=== PATIENT | male | born 1950 | race Caucasian/White ===

== ENCOUNTER 2019-09-04 00:02 | Inpatient (IN) | payer MEDICAID, MEDICARE ==
[2019-09-04] MEDS ORDERED: HYDROmorphone 0.5 MG/0.5 ML Syringe IVPUSH ONE (00:41)
[2019-09-04] MEDS ORDERED: Sodium Chloride 0.9% 1,000 ML IV SCH ×2 (00:45→02:45)
--- NOTE | 2019-09-04 00:52 | EDM.PDOC ---
ED HPI GENERAL MEDICAL PROBLEM - General Chief Complaint: Abdominal Pain Stated Complaint: ABD PAIN Time Seen by Provider: 09/04/19 00:30 Source of Information: Reports: Patient History Limitations: Reports: No Limitations - History of Present Illness INITIAL COMMENTS - FREE TEXT/NARRATIVE: 68-year-old male with right lower abdominal pain for the past 5 hours. He had a similar pain 2 weeks ago but it resolved. Tonight after eating he noticed he was having increased pain and also noticed a significant swelling in his right groin. It is not improving, it is getting worse, so he came in to be seen. He has type 2 diabetes which is insulin-dependent but has never had an abdominal surgery and is generally healthy. Onset: Sudden (pain started rather suddenly tonight just after 7 PM) Location: Reports: Abdomen Associated Symptoms: Reports: No Other Symptoms RLQ Pain Score (Numeric/FACES): 8 - Related Data Allergies Allergy/AdvReac Type Severity Reaction Status Date / Time No Known Allergies Allergy Verified 09/04/19 02:00 Home Meds: Home Meds Aspirin [Halfprin] 81 mg PO DAILY 02/18/16 [History] Cholecalciferol (Vitamin D3) [Vitamin D3] 5,000 unit PO DAILY 02/18/16 [History] Insulin Detemir [Levemir] 30 unit SQ BEDTIME 02/18/16 [History] Lisinopril 10 mg PO DAILY 02/18/16 [History] Pravastatin [Pravachol] 40 mg PO DAILY 02/18/16 [History] metFORMIN [Glucophage] 500 mg PO BIDMEALS 02/18/16 [History] Past Medical History HEENT History: Reports: Impaired Vision Cardiovascular History: Reports: High Cholesterol, Hypertension Musculoskeletal History: Reports: Arthritis Endocrine/Metabolic History: Reports: Diabetes, Type II, IDDM - Infectious Disease History Infectious Disease History: Reports: Chicken Pox, Measles, Mumps - Past Surgical History HEENT Surgical History: Reports: Tonsillectomy Social & Family History - Tobacco Use Smoking Status *Q: Never Smoker - Caffeine Use Caffeine Use: Reports: Soda - Recreational Drug Use Recreational Drug Use: No ED ROS GENERAL - Review of Systems Review Of Systems: See Below Constitutional: Denies: Fever, Chills Respiratory: Denies: Shortness of Breath GI/Abdominal: Reports: Abdominal Pain. Denies: Nausea, Vomiting : Reports: Other (Right groin pain) Skin: Reports: No Symptoms ED EXAM, GI/ABD - Physical Exam Exam: See Below Exam Limited By: No Limitations General Appearance: Alert, No Apparent Distress (Looks uncomfortable but not distressed) Eyes: Bilateral: Normal Appearance Head: Atraumatic Respiratory/Chest: No Respiratory Distress, Lungs Clear Cardiovascular: Regular Rate, Rhythm GI/Abdominal Exam: Other (Patient has a firm, very tender femoral hernia which is nonreducible) Extremities: Normal Inspection Neurological: Alert, Oriented Psychiatric: Normal Affect, Normal Mood Course - Vital Signs Last Recorded V/S: Last Vital Signs Temp 98.4 F 09/04/19 01:36 Pulse 69 09/04/19 01:36 Resp 16 09/04/19 01:36 BP 147/53 H 09/04/19 01:36 Pulse Ox 98 09/04/19 01:36 - Orders/Labs/Meds Orders: Active Orders 24 hr Category Date Time Status Sodium Chloride 0.9% [Normal Saline] 1,000 ml Med 09/04/19 00:45 Active IV ASDIRECTED Medication Orders Diphenhydramine HCl (Benadryl) 25 - 50 mg IV Q4H PRN PRN Reason: Itching Diphenhydramine HCl (Benadryl) 25 - 50 mg PO Q4H PRN PRN Reason: Itching Fentanyl (Sublimaze) 10 - 30 mcg IV Q1H PRN PRN Reason: Pain Sodium Chloride (Normal Saline) 1,000 mls @ 500 mls/hr IV ASDIRECTED ELIER Last Admin: 09/04/19 00:50 Dose: 500 mls/hr Miscellaneous Information (Remove Patch) 1 ea TRDERM Q72H ELIER Miscellaneous Information (Remove Patch) 1 ea TRDERM Q24H ELIER Morphine Sulfate (Morphine) 1 - 3 mg IVPUSH Q1H PRN PRN Reason: Pain Nicotine (Habitrol) 14 mg TRDERM Q24H PRN PRN Reason: Other Ondansetron HCl (Zofran) 4 mg IVPUSH Q8H PRN PRN Reason: Nausea Promethazine HCl (Phenergan) 12.5 - 25 mg IV Q8H PRN PRN Reason: Nausea/Vomiting Scopolamine (Transderm-Scop) 1.5 mg TOP Q72H PRN PRN Reason: Nausea Meds: Medications Generic Name Dose Route Start Last Admin Trade Name Freq PRN Reason Stop Dose Admin Diphenhydramine HCl 25 - 50 mg 09/04/19 02:02 Benadryl IV Q4H PRN Itching Diphenhydramine HCl 25 - 50 mg 09/04/19 02:03 Benadryl PO Q4H PRN Itching Fentanyl 10 - 30 mcg 09/04/19 02:06 Sublimaze IV Q1H PRN Pain Sodium Chloride 1,000 mls @ 500 mls/hr 09/04/19 00:45 09/04/19 00:50 Normal Saline IV 500 mls/hr ASDIRECTED ELIER Administration Miscellaneous Information 1 ea 09/06/19 09:00 Remove Patch TRDERM Q72H ELIER Miscellaneous Information 1 ea 09/04/19 21:00 Remove Patch TRDERM Q24H ELIER Morphine Sulfate 1 - 3 mg 09/04/19 02:05 Morphine IVPUSH Q1H PRN Pain Nicotine 14 mg 09/04/19 02:03 Habitrol TRDERM Q24H PRN Other Ondansetron HCl 4 mg 09/04/19 02:00 Zofran IVPUSH Q8H PRN Nausea Promethazine HCl 12.5 - 25 mg 09/04/19 02:01 Phenergan IV Q8H PRN Nausea/Vomiting Scopolamine 1.5 mg 09/04/19 02:00 Transderm-Scop TOP Q72H PRN Nausea Discontinued Medications Generic Name Dose Route Start Last Admin Trade Name Freq PRN Reason Stop Dose Admin Hydromorphone HCl 0.5 mg 09/04/19 00:41 09/04/19 00:47 Dilaudid IVPUSH 09/04/19 00:42 0.5 mg ONETIME ONE Administration - Re-Assessments/Exams Free Text/Narrative Re-Assessment/Exam: 09/04/19 00:54 An IV was started, patient will be hydrated and given 0.5 mg of IV Dilaudid. CBC CMP lactic acid were obtained. Discussed with Dr. Kidd, he accepted admission to do surgery in the morning. 09/04/19 02:33 White count and lactic acid are normal making ischemic bowel unlikely at this point. Departure - Departure Time of Disposition: 01:20 Disposition: Home, Self-Care 01 Clinical Impression: Incarcerated right inguinal hernia - Discharge Information - My Orders Last 24 Hours: My Active Orders 09/04/19 00:45 Sodium Chloride 0.9% [Normal Saline] 1,000 ml IV ASDIRECTED - Assessment/Plan Last 24 Hours: My Active Orders 09/04/19 00:45 Sodium Chloride 0.9% [Normal Saline] 1,000 ml IV ASDIRECTED
[2019-09-04] MEDS ORDERED: Scopolamine 1.5 MG Transdermal Patch TOP PRN (02:00)
[2019-09-04] MEDS ORDERED: Ondansetron 4 MG/2 ML SDV IVPUSH PRN (02:00)
[2019-09-04] MEDS ORDERED: Promethazine 25 MG/ML SDV IV PRN (02:01)
[2019-09-04] MEDS ORDERED: diphenhydrAMINE 50 MG/ML SDV IV PRN (02:02)
[2019-09-04] MEDS ORDERED: Nicotine 14 MG/24 Hr Patch TRDERM PRN (02:03)
[2019-09-04] MEDS ORDERED: diphenhydrAMINE 25 MG Cap PO PRN (02:03)
[2019-09-04] MEDS ORDERED: Morphine 4 MG/ML Syringe IVPUSH PRN (02:05)
[2019-09-04] MEDS ORDERED: fentaNYL 100 MCG/2 ML SDV IV PRN (02:06)
[2019-09-04] MEDS: Insulin Lispro 100 Unit/ML 3 ML KwikPen SUBCUT SCH ×2 (07:28→12:37)
[2019-09-04] MEDS ORDERED: Lidocaine 1% with EPINEPHrine 1:100,000 50 ML MDV ONE (07:34)
[2019-09-04] MEDS ORDERED: Bupivacaine 0.5% 50 ML MDV ONE (07:34)
[2019-09-04] MEDS ORDERED: Ropivacaine 50 ML, dexAMETHasone 8 MG, EPINEPHrine 0.4 MG, Sodium Chloride 0.9% 27.6 ML NERVRT SCH ×4 (08:00)
[2019-09-04] MEDS ORDERED: fentaNYL 100 MCG/2 ML SDV ONE (08:14)
[2019-09-04] MEDS ORDERED: Propofol 200 MG/20 ML SDV ONE ×2 (08:14→08:15)
[2019-09-04] MEDS ORDERED: Midazolam 1 MG/ML 2 ML SDV ONE (08:14)
[2019-09-04] MEDS ORDERED: ceFAZolin 2 GM in Premix Bag 1 BAG IV ONE (08:15)
[2019-09-04] MEDS ORDERED: Lactated Ringers 1,000 ML ONE (08:36)
--- NOTE | 2019-09-04 10:17 | PN ---
DATE OF SERVICE: 09/04/2019 SUBJECTIVE: The patient is unchanged this morning. No nausea, vomiting, shortness of breath, or chest pain. OBJECTIVE: VITAL SIGNS: Vital signs are stable. ABDOMEN: Inguinal hernia, incarcerated, right groin. ASSESSMENT AND PLAN: To the operating room for inguinal hernia repair. We again reviewed risks, benefits, alternatives, and limitations of the plan. Stanislaw Kidd MD /[id number]
--- NOTE | 2019-09-04 11:52 | CONS ---
DATE OF SERVICE: 09/04/2019 REFERRING PHYSICIAN: CONSULTING PHYSICIAN: Stanislaw Kidd MD REASON FOR CONSULTATION: Evaluation of right inguinal hernia pain. HISTORY OF PRESENT ILLNESS: This is a 68-year-old male who has had an approximately 1-week history of right groin pain. The patient said he felt a bulge and then subsequently this reduced, and this has recurred again. At this point, he cannot reduce it. His pain is 3 to 4/10. Has mild nausea. No vomiting, shortness of breath, or chest pain. PAST MEDICAL HISTORY: Type 2 diabetes, hypertension, and history of measles. SOCIAL HISTORY: He does not smoke. FAMILY HISTORY: Noncontributory. REVIEW OF SYSTEMS: GENERAL: The patient is appropriate for condition. HEENT: Does have vision issues. CARDIOVASCULAR: No history of myocardial infarction. RESPIRATORY: No recent history of pneumonia. GASTROINTESTINAL: Normal bowel movements. GENITOURINARY: No dysuria. NEUROLOGIC: No symptoms. PSYCH: No anxiety or depression. The remainder of review of systems is reviewed and is negative. PHYSICAL EXAMINATION: GENERAL: The patient is in his bed and resting comfortably. HEENT: Pupils are equal. NECK: Supple. LUNGS: Clear. CARDIOVASCULAR: Regular rhythm and rate. ABDOMEN: Incarcerated hernia, right groin. EXTREMITIES: Full range of motion. NEUROLOGIC: Oriented x3. PSYCH: No gross depression. IMAGING: I did review. ASSESSMENT: Right inguinal hernia, incarcerated. PLAN: The patient will be taken to the operating room in the morning for right inguinal hernia repair. We discussed risks, benefits, alternatives, and limitations including, but not limited to infection, bleeding, requirement for reoperation, chronic pain, seroma and hematoma formation, and other risks not listed here. The patient understands these risks and wishes to proceed. Stanislaw Kidd MD /[id number]
--- NOTE | 2019-09-04 11:55 | OR ---
DATE OF PROCEDURE: 09/04/2019 SURGEON: Stanislaw Kidd MD PROCEDURE: Open right inguinal hernia repair, incarcerated. COMPLICATIONS: None. TOWN JUSTICE: None. ANESTHESIA: MAC/local. RISKS: Risks, benefits, alternatives, and limitations including, but not limited to infection, bleeding, chronic pain, failure rates, and other risks not listed here were explained to the patient, and he wished to proceed. PROCEDURE IN DETAIL: The patient was placed in supine position. A classic curvilinear incision to the right of the pubic symphysis was performed. This was then carried down to the external oblique aponeurosis with electrocautery. This was opened with a 15 blade and subsequently Metzenbaum scissors. The hernia sac was identified, was ligated and deflected within the groin itself. During this process, Knobel was used to surround the cord structure and the hernia itself, which the hernia was from. An extra-large plug and patch was then placed with interrupted 2-0 Vicryl sutures. The overlay patch was stitched in proximity to the pubic symphysis and then interrupted sutures were then placed. The tails were placed around the cord structures, but careful attention was made not to have undue tension. The external oblique aponeurosis was then closed over this with interrupted Vicryl sutures. Subcutaneous tissues were approximated with 3-0 Vicryl, and the skin was closed with 4-0 Vicryl and Dermabond. The patient tolerated the procedure well. Stanislaw Kidd MD /[id number]
--- NOTE | 2019-09-04 11:59 | PROC ---
DATE OF PROCEDURE: 09/04/2019 SURGEON: Stanislaw Kidd MD PROCEDURE: Transversus abdominis plane block bilaterally. COMPLICATIONS: None. DYE WINCH OPERATOR: None. RISKS: Risks, benefits, alternatives, and limitations including, but not limited to infection, bleeding, and injury to abdominal structures were explained to the patient, who wished to proceed. PROCEDURE IN DETAIL: The patient was placed in supine position. Using the 13 megahertz ultrasound probe, the needle was advanced directly into the transversus plane. This was injected with the entire contents. The other side was then performed in same manner, same fashion, same technique, in the same sequence, and using the same equipment. The patient tolerated the procedure well. Stanislaw Kidd MD /[id number]
[2019-09-04 12:38] VITALS: BP 161/78; PULSE 62
--- NOTE | 2019-09-07 10:40 | DISCH ---
DISCHARGE DIAGNOSIS: Status post right inguinal hernia repair, incarcerated. SUMMARY OF HOSPITAL COURSE: This is a pleasant 68-year-old male who was admitted to the emergency room with abdominal pain and was subsequently diagnosed with incarcerated hernia. The patient underwent uneventful incarcerated hernia repair. Prior to discharge, his pain was well controlled. He had no nausea, vomiting, shortness of breath, or chest pain. ACTIVITY: No lifting greater than 30 pounds x30 days. DISCHARGE MEDICATIONS: Please see MAR. FOLLOWUP: With Surgery in 7 to 14 days. COMPLICATIONS OR CONSULTIONS DURING THIS HOPITALIZATION: None.
== END 2019-09-04 13:13 | disposition still patient (30) | DRG 352 ==
LOC: JP.ED 00:02 → JP.MS 00:56
PROVIDERS: ADMIT Surgery; ATTEND Surgery
PROC: 0YQ50ZZ Repair Right Inguinal Region, Open Approach (ICD-10-PCS; principal; 2019-09-04)
DX: K40.30 Unilateral inguinal hernia, with obstruction, without gangrene, not specified as recurrent (principal); H54.7 Unspecified visual loss; I10 Essential (primary) hypertension; E11.9 Type 2 diabetes mellitus without complications; E78.00 Pure hypercholesterolemia, unspecified; M19.90 Unspecified osteoarthritis, unspecified site; Z79.82 Long term (current) use of aspirin; Z79.4 Long term (current) use of insulin; Z79.899 Other long term (current) drug therapy; Z90.89 Acquired absence of other organs
CPT/HCPCS: 36415; J1170; J7030; 80053; 82962; 83605; 85025; 96361; 96374; 99284; 99284-25; C1781; J0171; J0690; J1100; J1815; J2250; J2270; J2704; J2795; J3010; J3490; J7050; J7120

== ENCOUNTER 2023-01-13 06:25 | Day surgery (SDC) | payer MEDICARE ==
[2023-01-13] MEDS ORDERED: Sodium Chloride 0.9% 10 ML Syringe FLUSH PRN (07:00)
[2023-01-13 08:05] VITALS: BP 145/89; PULSE 62
== END 2023-01-13 08:11 | disposition home or self-care (01) ==
LOC: JP.SDS 06:25
PROVIDERS: ATTEND Ophthalmology
DX: E11.36 Type 2 diabetes mellitus with diabetic cataract (principal); H26.9 Unspecified cataract; I10 Essential (primary) hypertension
CPT/HCPCS: 66984; J3490

== ENCOUNTER 2023-02-03 06:18 | Day surgery (SDC) | payer MEDICARE ==
[2023-02-03] MEDS ORDERED: Sodium Chloride 0.9% 10 ML Syringe FLUSH PRN (07:00)
[2023-02-03 08:13] VITALS: BP 157/71; PULSE 56
== END 2023-02-03 08:17 | disposition home or self-care (01) ==
LOC: JP.SDS 06:18
PROVIDERS: ATTEND Ophthalmology
DX: H26.9 Unspecified cataract (principal)
CPT/HCPCS: 66984; J3490